=== PATIENT | male | born 1950 | race Caucasian/White ===

== ENCOUNTER → 2016-04-19 | Outpatient (CLI) | payer OTHER ==
[~2016-04-19] MED LIST: NEXIUM40 MG PO; TRAVATAN Z5 ML BOTH EYES
[2016-04-19 08:47] LABS: INTER. NORMALIZED RATIO 1.2; PROTHROMBIN TIME 12.6 (9.2-11.2); PTT 28.2 (25-32)
== END | disposition home or self-care (01) ==
LOC: OPR 04-17 10:00 → EDSTATUS 08:00
PROVIDERS: Internal Medicine
PROC: 0FB03ZX Excision of Liver, Percutaneous Approach, Diagnostic (ICD-10-PCS; principal; 2016-04-19)
DX: C22.7 Other specified carcinomas of liver (principal); R16.0 Hepatomegaly, not elsewhere classified; K21.9 Gastro-esophageal reflux disease without esophagitis; E78.5 Hyperlipidemia, unspecified; I10 Essential (primary) hypertension
CPT/HCPCS: 77012; 85610; 85730; 88307; 88341 TC; 88342 TC; J3010

== ENCOUNTER 2016-05-09 16:48 | Inpatient (IN) | payer OTHER ==
[~2016-05-09] VITALS: Ht 167.6 cm; Wt 71.0 kg
[~2016-05-09 16:48] MED LIST changes: +LORAZEPAM0.5 MG PO; +MIRALAX17 GM PO; +MORPHINE SULFAT15 MG PO; +ZOFRAN ODT4 MG PO
[2016-05-09 17:33] LABS: CHLORIDE 93 mEq/L (99-109); EOSINOPHIL (%) 1.4 % (0-5); HEMATOCRIT 39.3 % (38.0-50.0); LYMPHOCYTE COUNT 0.6 K/uL (1.0-2.8); MCHC 35.4 G/DL (30.0-36.0); MCV 87.7 FL (86-99); MONOCYTE (%) 4.3 % (3-12); NEUTROPHIL (%) 2.9 % (45-76); POTASSIUM 3.4 mEq/L (3.7-5.4); RBC DIS.WIDTH-CV 17.6 % (11.8-14.6); RED BLOOD COUNT 4.48 M/uL (4.00-5.50); SODIUM 132 mEq/L (136-147)
[2016-05-09 17:35] LABS: GLUCOSE 122 mg/dL (70-99)
[2016-05-09 17:36] LABS: ANION GAP 13 MEQ/L (2-14)
[2016-05-09 17:37] LABS: TOTAL BILIRUBIN 9.6 mg/dL (0.0-1.0); WHITE BLOOD COUNT 0.7 K/uL (4.1-10.2)
[2016-05-09 17:39] LABS: ALKALINE PHOSPHATASE 233 IU/L (3-129); GFR ESTIMATE (CALCULATED) > 59 mL/min/
[2016-05-09 17:40] LABS: UREA NITROGEN (BUN) 17 mg/dL (9-23)
[2016-05-09 18:15] LABS: ADD MIUA? NO; BILIRUBIN SMALL; BLOOD NEGATIVE; COLOR AMBER ((YELLOW)); GLUCOSE (STRIP) 50; KETONES NEGATIVE; LEUKOCYTES NEGATIVE; NITRITE NEGATIVE; PROTEIN (STRIP) 30; SPECIFIC GRAVITY 1.018 (1.000-1.030); UCUL ADDED? NO
[2016-05-09 19:19] LABS: ABS NEUTROPHIL COUNT 0.03; ANISOCYTOSIS 1+; HYPOCHROMASIA 1+; MEAN PLAT.VOLUME 11.3 uM^3 (9.0-12.4); PLAT.SUFFICIENCY DECREASED; TARGET CELLS 2+; USER ID SS
[2016-05-09 19:20] LABS: PLATELET COUNT 35 K/uL (156-360)
[2016-05-09] MEDS ORDERED: NYSTATIN100000 UN1 PO (19:38)
[2016-05-10] VITALS (7 sets, daily range): BP systolic 100–124; BP diastolic 52–67
[2016-05-10 07:48] LABS: ANION GAP 9 MEQ/L (2-14); CHLORIDE 97 MEQ/L (99-109); GFR ESTIMATE (CALCULATED) > 59 mL/min/; GLUCOSE 116 mg/dL (70-99); POTASSIUM 3.4 MEQ/L (3.7-5.4); SAMPLE HEMOLYSIS CHECK 0; SAMPLE ICTERIC CHECK 2; SAMPLE LIPEMIA CHECK 0; SODIUM 134 MEQ/L (136-147); TOTAL BILIRUBIN 9.1 MG/DL (0.0-1.0); UREA NITROGEN (BUN) 16 mg/dL (9-23)
[2016-05-10 07:49] LABS: ALKALINE PHOSPHATASE 182 IU/L (3-129)
[2016-05-10 08:17] LABS: HEMATOCRIT 33.6 % (38.0-50.0); MCH 31.6 PG (29.0-34.0); MCHC 35.1 G/DL (30.0-36.0); MCV 89.8 FL (86-99); RBC DIS.WIDTH-CV 16.8 % (11.8-14.6); RBC DIS.WIDTH-SD 55.8 % (39-53); RED BLOOD COUNT 3.74 M/uL (4.00-5.50)
[2016-05-10 08:18] LABS: MEAN PLAT.VOLUME 11.3 uM^3 (9.0-12.4)
[2016-05-10 08:19] LABS: WHITE BLOOD COUNT 0.9 K/uL (4.1-10.2)
[2016-05-10 08:20] LABS: PLATELET COUNT 25 K/uL (156-360)
[2016-05-10 08:54] LABS: HEMATOLOGY COMMENT 1 CL
[2016-05-11] VITALS (7 sets, daily range): BP systolic 116–156; BP diastolic 59–92
[2016-05-12] VITALS (11 sets, daily range): BP systolic 106–139; BP diastolic 53–87
[2016-05-12 09:51] LABS: HEMATOCRIT 33.7 % (38.0-50.0); MCH 30.9 PG (29.0-34.0); MCHC 34.1 G/DL (30.0-36.0); MCV 90.6 FL (86-99); RBC DIS.WIDTH-CV 15.8 % (11.8-14.6); RBC DIS.WIDTH-SD 52.1 % (39-53); RED BLOOD COUNT 3.72 M/uL (4.00-5.50)
[2016-05-12 09:53] LABS: EOSINOPHIL (%) 0 % (0-5); LYMPHOCYTE COUNT 0.9 K/uL (1.0-2.8); MONOCYTE (%) 1.1 % (3-12); NEUTROPHIL (%) 0 % (45-76); PLAT.SUFFICIENCY DECREASED
[2016-05-12 09:55] LABS: PLATELET COUNT 6 K/uL (156-360); WHITE BLOOD COUNT 0.9 K/uL (4.1-10.2)
[2016-05-12 09:57] LABS: HEMATOLOGY COMMENT 1 SMEAR COMPATIBLE
[2016-05-12 10:52] LABS: ALKALINE PHOSPHATASE 166 IU/L (3-129); ANION GAP 11 MEQ/L (2-14); CHLORIDE 97 MEQ/L (99-109); GFR ESTIMATE (CALCULATED) > 59 mL/min/; GLUCOSE 128 mg/dL (70-99); POTASSIUM 3.1 MEQ/L (3.7-5.4); SAMPLE HEMOLYSIS CHECK 0; SAMPLE ICTERIC CHECK 2; SAMPLE LIPEMIA CHECK 0; SODIUM 136 MEQ/L (136-147); TOTAL BILIRUBIN 7.6 MG/DL (0.0-1.0); UREA NITROGEN (BUN) 16 mg/dL (9-23)
[2016-05-12 20:39] LABS: HEMATOCRIT 29.9 % (38.0-50.0); MCH 32.3 PG (29.0-34.0); MCHC 35.8 G/DL (30.0-36.0); MCV 90.3 FL (86-99); MEAN PLAT.VOLUME 10.1 uM^3 (9.0-12.4); PLATELET COUNT 56 K/uL (156-360); RBC DIS.WIDTH-CV 15.3 % (11.8-14.6); RBC DIS.WIDTH-SD 50.7 % (39-53); RED BLOOD COUNT 3.31 M/uL (4.00-5.50)
[2016-05-13 02:59] VITALS: BP 114/60
[2016-05-13 07:03] LABS: HEMATOCRIT 30.5 % (38.0-50.0); MCH 30.6 PG (29.0-34.0); MCHC 33.8 G/DL (30.0-36.0); MCV 91.2 FL (86-99); RBC DIS.WIDTH-CV 15.1 % (11.8-14.6); RBC DIS.WIDTH-SD 50.1 % (39-53); RED BLOOD COUNT 3.37 M/uL (4.00-5.50)
[2016-05-13 07:10] LABS: WHITE BLOOD COUNT 1.1 K/uL (4.1-10.2)
[2016-05-13 07:20] VITALS: BP 113/67
[2016-05-13 08:04] LABS: EOSINOPHIL (%) 0.9 % (0-5); HEMATOLOGY COMMENT 1 SMEAR COMPATIBLE; LYMPHOCYTE COUNT 1.1 K/uL (1.0-2.8); MEAN PLAT.VOLUME 10.4 uM^3 (9.0-12.4); MONOCYTE (%) 2.7 % (3-12); NEUTROPHIL (%) 0 % (45-76); PLAT.SUFFICIENCY DECREASED; PLATELET COUNT 44 K/uL (156-360)
[2016-05-13 10:55] VITALS: BP 119/63
[2016-05-13] MEDS ORDERED: LEVAQUIN750 MG PO (12:12)
== END 2016-05-13 14:00 | disposition home or self-care (01) | DRG 809 ==
LOC: EME 16:48 → EDOF 19:58 → 5EAST 19:58
PROVIDERS: Emergency Medicine; Internal Medicine; Internal Medicine Hematology & Oncology
PROC: 30233R1 Transfusion of Nonautologous Platelets into Peripheral Vein, Percutaneous Approach (ICD-10-PCS; principal; 2016-05-12)
DX: D70.1 Agranulocytosis secondary to cancer chemotherapy (principal); R50.81 Fever presenting with conditions classified elsewhere; C34.90 Malignant neoplasm of unspecified part of unspecified bronchus or lung; C78.7 Secondary malignant neoplasm of liver and intrahepatic bile duct; R78.81 Bacteremia; B96.20 Unspecified Escherichia coli [E. coli] as the cause of diseases classified elsewhere; B96.5 Pseudomonas (aeruginosa) (mallei) (pseudomallei) as the cause of diseases classified elsewhere; D69.59 Other secondary thrombocytopenia; I10 Essential (primary) hypertension; K21.9 Gastro-esophageal reflux disease without esophagitis; F41.9 Anxiety disorder, unspecified; E78.5 Hyperlipidemia, unspecified; N40.0 Benign prostatic hyperplasia without lower urinary tract symptoms; Z87.891 Personal history of nicotine dependence
CPT/HCPCS: 36415; 71020; 80053; 81003; 83605; 85009; 85025; 85027; 86850; 86900; 86901; 87040; 87077; 87186; 87801; 93005; 99281; 99285; J0692; J0696; J2405; J3480; J7030; J7050; P9035

== ENCOUNTER 2016-05-27 12:34 | Emergency (ER) | payer OTHER ==
[~2016-05-27] VITALS: Ht 172.7 cm; Wt 71.2 kg
[~2016-05-27 12:34] MED LIST changes: +LEVAQUIN750 MG PO; +NYSTATIN100000 UN1 PO
[2016-05-27 13:25] LABS: BASOPHIL COUNT 0.1 K/uL (0-0.1); EOSINOPHIL (%) 0 % (0-5); HEMATOCRIT 36.7 % (38.0-50.0); IMMATURE GRANULOCYTE (%) 4.7 % (0.0-0.7); IMMATURE GRANULOCYTE COUNT 0.5 K/uL; INSTRUMENT ABS NEUTROPHIL CT 5.9 K/uL; LYMPHOCYTE COUNT 2.2 K/uL (1.0-2.8); MCH 31.1 PG (29.0-34.0); MCHC 34.3 G/DL (30.0-36.0); MCV 90.6 FL (86-99); MEAN PLAT.VOLUME 9.4 uM^3 (9.0-12.4); MONOCYTE (%) 13.8 % (3-12); MONOCYTE COUNT 1.4 K/uL (0-0.8); NEUTROPHIL (%) 59.2 % (45-76); NEUTROPHIL COUNT 5.9 K/uL (1.8-6.4); NRBC (%) 0.2 /100 WBC (0-0); PLATELET COUNT 631 K/uL (156-360); RBC DIS.WIDTH-SD 45.1 % (39-53); RED BLOOD COUNT 4.05 M/uL (4.00-5.50); WHITE BLOOD COUNT 9.9 K/uL (4.1-10.2)
[2016-05-27 13:33] LABS: CHLORIDE 96 mEq/L (99-109); POTASSIUM 3.5 mEq/L (3.7-5.4); SODIUM 134 mEq/L (136-147)
[2016-05-27 13:35] LABS: GLUCOSE 140 mg/dL (70-99)
[2016-05-27 13:36] LABS: ANION GAP 14 MEQ/L (2-14)
[2016-05-27 13:39] LABS: GFR ESTIMATE (CALCULATED) > 59 mL/min/
[2016-05-27 13:40] LABS: UREA NITROGEN (BUN) 10 mg/dL (9-23)
[2016-05-27 15:53] VITALS: BP 142/75
[2016-05-27] MEDS ORDERED: ANTIVERT25 MG PO (15:56)
[2016-05-28] MEDS ORDERED: LEVAQUIN750 MG PO (18:38)
[2016-05-28] MEDS ORDERED: K-DUR10 MEQ PO (18:39)
[2016-05-28] MEDS ORDERED: LEVAQUIN250 MG PO (18:39)
== END 2016-05-27 16:53 | disposition home or self-care (01) ==
LOC: EME 12:34
PROVIDERS: Emergency Medicine
DX: R42 Dizziness and giddiness (principal); R11.2 Nausea with vomiting, unspecified; R19.7 Diarrhea, unspecified; C34.90 Malignant neoplasm of unspecified part of unspecified bronchus or lung; C78.7 Secondary malignant neoplasm of liver and intrahepatic bile duct; Z87.891 Personal history of nicotine dependence
CPT/HCPCS: 80048; 85025; 93005; 99281; 99285; J2405; J7030

== ENCOUNTER 2016-05-28 15:12 | Observation (INO) | payer OTHER ==
[~2016-05-28] VITALS: Ht 172.7 cm; Wt 70.5 kg
[~2016-05-28 15:12] MED LIST changes: +ANTIVERT25 MG PO
[2016-05-28 16:42] LABS: EOSINOPHIL (%) 0 % (0-5); IMMATURE GRANULOCYTE (%) 3.1 % (0.0-0.7); IMMATURE GRANULOCYTE COUNT 0.4 K/uL; INSTRUMENT ABS NEUTROPHIL CT 6.4 K/uL; LYMPHOCYTE COUNT 3.8 K/uL (1.0-2.8); MCH 31.1 PG (29.0-34.0); MCHC 34.1 G/DL (30.0-36.0); MCV 91.4 FL (86-99); MEAN PLAT.VOLUME 9.2 uM^3 (9.0-12.4); MONOCYTE (%) 14.4 % (3-12); MONOCYTE COUNT 1.8 K/uL (0-0.8); NEUTROPHIL (%) 51.9 % (45-76); NEUTROPHIL COUNT 6.4 K/uL (1.8-6.4); NRBC (%) 0.2 /100 WBC (0-0); PLATELET COUNT 668 K/uL (156-360); RBC DIS.WIDTH-CV 14.2 % (11.8-14.6); RBC DIS.WIDTH-SD 46.2 % (39-53); RED BLOOD COUNT 4.05 M/uL (4.00-5.50); WHITE BLOOD COUNT 12.4 K/uL (4.1-10.2)
[2016-05-28 16:57] LABS: CHLORIDE 96 mEq/L (99-109); POTASSIUM 3.4 mEq/L (3.7-5.4); SODIUM 134 mEq/L (136-147)
[2016-05-28 17:00] LABS: GLUCOSE 103 mg/dL (70-99)
[2016-05-28 17:01] LABS: ANION GAP 11 MEQ/L (2-14)
[2016-05-28 17:02] LABS: TOTAL BILIRUBIN 2.1 mg/dL (0.0-1.0)
[2016-05-28 17:03] LABS: ALKALINE PHOSPHATASE 153 IU/L (3-129); GFR ESTIMATE (CALCULATED) > 59 mL/min/
[2016-05-28 17:04] LABS: UREA NITROGEN (BUN) 10 mg/dL (9-23)
[2016-05-28] MEDS ORDERED: LEVAQUIN750 MG PO (18:38)
[2016-05-28] MEDS ORDERED: K-DUR10 MEQ PO (18:39)
[2016-05-28] MEDS ORDERED: LEVAQUIN250 MG PO (18:39)
[2016-05-28 23:14] VITALS: BP 161/72
[2016-05-29 00:39] VITALS: BP 124/67
[2016-05-29 03:00] VITALS: BP 143/71
[2016-05-29 04:40] LABS: ADD MIUA? NO; BILIRUBIN NEGATIVE; BLOOD NEGATIVE; COLOR YELLOW ((YELLOW)); GLUCOSE (STRIP) NEGATIVE; KETONES 5; LEUKOCYTES NEGATIVE; NITRITE NEGATIVE; PROTEIN (STRIP) NEGATIVE; SPECIFIC GRAVITY 1.008 (1.000-1.030); UCUL ADDED? NO
[2016-05-29 08:05] VITALS: BP 118/68
[2016-05-29 08:53] LABS: HEMATOCRIT 34.3 % (38.0-50.0); MCH 31.5 PG (29.0-34.0); MCHC 34.1 G/DL (30.0-36.0); MCV 92.2 FL (86-99); MEAN PLAT.VOLUME 10.5 uM^3 (9.0-12.4); PLATELET COUNT 592 K/uL (156-360); RBC DIS.WIDTH-CV 14.4 % (11.8-14.6); RBC DIS.WIDTH-SD 46.8 % (39-53); RED BLOOD COUNT 3.72 M/uL (4.00-5.50); WHITE BLOOD COUNT 12.6 K/uL (4.1-10.2)
[2016-05-29 09:11] LABS: ANION GAP 8 MEQ/L (2-14); CHLORIDE 99 MEQ/L (99-109); GFR ESTIMATE (CALCULATED) > 59 mL/min/; GLUCOSE 86 mg/dL (70-99); POTASSIUM 3.6 MEQ/L (3.7-5.4); SAMPLE HEMOLYSIS CHECK 1; SAMPLE ICTERIC CHECK 0; SAMPLE LIPEMIA CHECK 0; SODIUM 133 MEQ/L (136-147); UREA NITROGEN (BUN) 8 mg/dL (9-23)
[2016-05-29 12:38] VITALS: BP 129/73
[2016-05-29] MEDS ORDERED: REGLAN10 MG PO (14:25)
== END 2016-05-29 15:35 | disposition home or self-care (01) ==
LOC: EME 15:12 → EDOF 21:00 → 5WEST 22:52
PROVIDERS: Emergency Medicine; Hospitalist
DX: R11.2 Nausea with vomiting, unspecified (principal); R62.7 Adult failure to thrive; E86.0 Dehydration; C34.90 Malignant neoplasm of unspecified part of unspecified bronchus or lung; D72.829 Elevated white blood cell count, unspecified; E46 Unspecified protein-calorie malnutrition; R42 Dizziness and giddiness; I10 Essential (primary) hypertension; E78.5 Hyperlipidemia, unspecified; Z87.81 Personal history of (healed) traumatic fracture
CPT/HCPCS: 80048; 80053; 81003; 85025 91; 85027; 99281; 99285; G0378; J2765; J3480; J7030; J7050

== ENCOUNTER 2016-06-11 17:49 | Emergency (ER) | payer OTHER ==
[~2016-06-11] VITALS: Ht 175.3 cm; Wt 73.7 kg
[~2016-06-11 17:49] MED LIST changes: +K-DUR10 MEQ PO; +LEVAQUIN250 MG PO; +REGLAN10 MG PO
[2016-06-11 19:47] LABS: HEMATOCRIT 33.8 % (38.0-50.0); MCH 31.3 PG (29.0-34.0); MCV 91.8 FL (86-99); RBC DIS.WIDTH-CV 13.5 % (11.8-14.6); RBC DIS.WIDTH-SD 45.1 % (39-53); RED BLOOD COUNT 3.68 M/uL (4.00-5.50)
[2016-06-11 19:48] LABS: WHITE BLOOD COUNT 16.3 K/uL (4.1-10.2)
[2016-06-11 19:56] LABS: CHLORIDE 100 mEq/L (99-109); POTASSIUM 3.6 mEq/L (3.7-5.4); SODIUM 137 mEq/L (136-147)
[2016-06-11 19:57] LABS: GLUCOSE 81 mg/dL (70-99)
[2016-06-11 19:59] LABS: ANION GAP 17 MEQ/L (2-14)
[2016-06-11 20:01] LABS: GFR ESTIMATE (CALCULATED) > 59 mL/min/
[2016-06-11 20:02] LABS: UREA NITROGEN (BUN) 16 mg/dL (9-23)
[2016-06-11 20:33] LABS: HEMATOLOGY COMMENT 1 SN; MEAN PLAT.VOLUME 10.8 uM^3 (9.0-12.4)
[2016-06-11 20:34] LABS: PLATELET COUNT 279 K/uL (156-360)
[2016-06-11 21:14] LABS: C DIFF TOXIN NEGATIVE (NEGATIVE)
[2016-06-11 21:15] LABS: PROBE CHECK PASS; SPECIMEN PROCESSING CONTROL PASS
[2016-06-11 22:19] VITALS: BP 120/91
== END 2016-06-11 22:20 | disposition home or self-care (01) ==
LOC: EME 17:49
PROVIDERS: Emergency Medicine
DX: E86.0 Dehydration (principal); R11.2 Nausea with vomiting, unspecified; R19.7 Diarrhea, unspecified; R55 Syncope and collapse; C22.8 Malignant neoplasm of liver, primary, unspecified as to type; C78.00 Secondary malignant neoplasm of unspecified lung; Z87.891 Personal history of nicotine dependence
CPT/HCPCS: 80048; 85027; 87493; 99281; 99285; J2405; J7030

== ENCOUNTER 2016-09-19 12:45 | Observation (INO) | payer OTHER ==
[~2016-09-19] VITALS: Ht 170.2 cm; Wt 66.5 kg
[~2016-09-19 12:45] MED LIST changes: +VIRTUSSIN AC L473 ML PO
[2016-09-19 15:06] LABS: HEMATOCRIT 35.6 % (38.0-50.0); MCH 31.5 PG (29.0-34.0); MCHC 33.1 G/DL (30.0-36.0); MCV 94.9 FL (86-99); MEAN PLAT.VOLUME 9.1 uM^3 (9.0-12.4); PLATELET COUNT 135 K/uL (156-360); RBC DIS.WIDTH-CV 16.4 % (11.8-14.6); RBC DIS.WIDTH-SD 58.1 % (39-53); RED BLOOD COUNT 3.75 M/uL (4.00-5.50); WHITE BLOOD COUNT 7.8 K/uL (4.1-10.2)
[2016-09-19 15:13] LABS: CHLORIDE 102 mEq/L (99-109); POTASSIUM 4.1 mEq/L (3.7-5.4); SODIUM 138 mEq/L (136-147)
[2016-09-19 15:15] LABS: GLUCOSE 110 mg/dL (70-99)
[2016-09-19 15:17] LABS: ANION GAP 10 MEQ/L (2-14); TOTAL BILIRUBIN 0.6 mg/dL (0.0-1.0)
[2016-09-19 15:19] LABS: ALKALINE PHOSPHATASE 95 IU/L (3-129); GFR ESTIMATE (CALCULATED) > 59 mL/min/
[2016-09-19 15:20] LABS: UREA NITROGEN (BUN) 11 mg/dL (9-23)
[2016-09-19 15:26] LABS: TROP-I INTERPRETATION NEGATIVE; TROPONIN-I < 0.01 ng/mL (0.0-0.30)
[2016-09-19] MEDS ORDERED: METOCLOPRAMIDE10 MG PO (18:32)
[2016-09-19 22:31] VITALS: BP 136/83
[2016-09-19 22:31] LABS: TROP-I INTERPRETATION NEGATIVE; TROPONIN-I < 0.01 ng/mL (0.0-0.30)
[2016-09-20 04:33] VITALS: BP 121/85
[2016-09-20 05:47] LABS: HEMATOCRIT 33.9 % (38.0-50.0); MCH 31.7 PG (29.0-34.0); MCHC 33.3 G/DL (30.0-36.0); MEAN PLAT.VOLUME 9.1 uM^3 (9.0-12.4); PLATELET COUNT 126 K/uL (156-360); RBC DIS.WIDTH-CV 16.3 % (11.8-14.6); RBC DIS.WIDTH-SD 57.9 % (39-53); RED BLOOD COUNT 3.57 M/uL (4.00-5.50); WHITE BLOOD COUNT 6.4 K/uL (4.1-10.2)
[2016-09-20 06:08] LABS: ANION GAP 10 MEQ/L (2-14); CHLORIDE 100 MEQ/L (99-109); GFR ESTIMATE (CALCULATED) > 59 mL/min/; GLUCOSE 88 mg/dL (70-99); POTASSIUM 3.9 MEQ/L (3.7-5.4); SAMPLE HEMOLYSIS CHECK 0; SAMPLE ICTERIC CHECK 0; SAMPLE LIPEMIA CHECK 0; SODIUM 140 MEQ/L (136-147); UREA NITROGEN (BUN) 11 mg/dL (9-23)
[2016-09-20 08:00] VITALS: BP 139/88
[2016-09-20 11:11] VITALS: BP 133/92
== END 2016-09-20 12:10 | disposition home or self-care (01) ==
LOC: EME 12:45 → EDOF 20:01 → 5WEST 20:01
PROVIDERS: Emergency Medicine; Hospitalist
DX: R00.0 Tachycardia, unspecified (principal); C34.90 Malignant neoplasm of unspecified part of unspecified bronchus or lung; C78.7 Secondary malignant neoplasm of liver and intrahepatic bile duct; I10 Essential (primary) hypertension; E11.9 Type 2 diabetes mellitus without complications; Z87.891 Personal history of nicotine dependence; E78.5 Hyperlipidemia, unspecified
CPT/HCPCS: 80048; 80053; 84443; 84484; 85027; 93005; 99281; 99285; G0378; J1644

== ENCOUNTER 2016-10-06 14:00 | Emergency (ER) | payer OTHER ==
[~2016-10-06] VITALS: Ht 170.2 cm; Wt 65.1 kg
[~2016-10-06 14:00] MED LIST changes: +METOCLOPRAMIDE10 MG PO
[2016-10-06 15:11] LABS: HEMATOCRIT 34.4 % (38.0-50.0); MCH 31.5 PG (29.0-34.0); MCHC 33.7 G/DL (30.0-36.0); MCV 93.5 FL (86-99); MEAN PLAT.VOLUME 9.2 uM^3 (9.0-12.4); PLATELET COUNT 121 K/uL (156-360); RBC DIS.WIDTH-CV 14.9 % (11.8-14.6); RBC DIS.WIDTH-SD 51.8 % (39-53); RED BLOOD COUNT 3.68 M/uL (4.00-5.50); WHITE BLOOD COUNT 7.1 K/uL (4.1-10.2)
[2016-10-06 15:19] LABS: CHLORIDE 96 mEq/L (99-109); SODIUM 134 mEq/L (136-147)
[2016-10-06 15:21] LABS: GLUCOSE 104 mg/dL (70-99)
[2016-10-06 15:22] LABS: ANION GAP 15 MEQ/L (2-14)
[2016-10-06 15:23] LABS: TOTAL BILIRUBIN 1.2 mg/dL (0.0-1.0)
[2016-10-06 15:24] LABS: ALKALINE PHOSPHATASE 170 IU/L (3-129)
[2016-10-06 15:25] LABS: GFR ESTIMATE (CALCULATED) > 59 mL/min/
[2016-10-06 15:26] LABS: UREA NITROGEN (BUN) 14 mg/dL (9-23)
[2016-10-06] MEDS ORDERED: DILAUDID2 MG PO (16:34)
[2016-10-06 16:52] VITALS: BP 130/90
== END 2016-10-06 16:45 | disposition home or self-care (01) ==
LOC: EME 14:00
PROVIDERS: Physician Assistant Medical
DX: G89.3 Neoplasm related pain (acute) (chronic) (principal); C34.90 Malignant neoplasm of unspecified part of unspecified bronchus or lung; C78.7 Secondary malignant neoplasm of liver and intrahepatic bile duct; Z87.891 Personal history of nicotine dependence
CPT/HCPCS: 80053; 81003; 85027; 99281; 99284; J1170

== ENCOUNTER 2016-10-07 11:48 | Emergency (ER) | payer OTHER ==
[~2016-10-07] VITALS: Ht 170.2 cm; Wt 65.1 kg
[~2016-10-07 11:48] MED LIST changes: +DILAUDID2 MG PO
[2016-10-07 12:39] LABS: HEMATOCRIT 34.9 % (38.0-50.0); MCH 31.8 PG (29.0-34.0); MCHC 33.8 G/DL (30.0-36.0); MCV 94.1 FL (86-99); MEAN PLAT.VOLUME 9.7 uM^3 (9.0-12.4); PLATELET COUNT 163 K/uL (156-360); RBC DIS.WIDTH-CV 15.2 % (11.8-14.6); RBC DIS.WIDTH-SD 52.7 % (39-53); RED BLOOD COUNT 3.71 M/uL (4.00-5.50); WHITE BLOOD COUNT 10.2 K/uL (4.1-10.2)
[2016-10-07 12:51] LABS: CHLORIDE 93 mEq/L (99-109); POTASSIUM 3.4 mEq/L (3.7-5.4); SODIUM 131 mEq/L (136-147)
[2016-10-07 12:53] LABS: GLUCOSE 153 mg/dL (70-99)
[2016-10-07 12:54] LABS: ANION GAP 16 MEQ/L (2-14)
[2016-10-07 12:56] LABS: ALKALINE PHOSPHATASE 179 IU/L (3-129)
[2016-10-07 12:57] LABS: GFR ESTIMATE (CALCULATED) > 59 mL/min/
[2016-10-07 12:58] LABS: UREA NITROGEN (BUN) 16 mg/dL (9-23)
[2016-10-07 13:00] LABS: LIPASE 17 U/L (1.0-51.0)
[2016-10-07 13:42] LABS: TROP-I INTERPRETATION NEGATIVE; TROPONIN-I < 0.01 ng/mL (0.0-0.30)
[2016-10-07 14:14] LABS: ADD MIUA? YES; BILIRUBIN NEGATIVE; BLOOD NEGATIVE; COLOR YELLOW ((YELLOW)); GLUCOSE (STRIP) NEGATIVE; KETONES 20; LEUKOCYTES NEGATIVE; NITRITE NEGATIVE; PROTEIN (STRIP) 100; SPECIFIC GRAVITY 1.012 (1.000-1.030); UROBILINOGEN 0.2 MG/DL (0.2-1.0)
[2016-10-07 14:22] LABS: BACTERIA RARE /HPF; EPITHELIAL CELLS RARE /HPF; MUCUS TRACE /LPF; RED BLOOD CELLS 0-5 /HPF (0-5); UCUL ADDED? NO; WHITE BLOOD CELLS NONE SEEN /HPF (0-5)
[2016-10-07 17:18] VITALS: BP 132/94
== END 2016-10-07 17:19 | disposition home or self-care (01) ==
LOC: EME 11:48
PROVIDERS: Emergency Medicine
DX: R10.31 Right lower quadrant pain (principal); R10.32 Left lower quadrant pain; C34.90 Malignant neoplasm of unspecified part of unspecified bronchus or lung; C78.7 Secondary malignant neoplasm of liver and intrahepatic bile duct; K21.9 Gastro-esophageal reflux disease without esophagitis; I10 Essential (primary) hypertension; F32.9 Major depressive disorder, single episode, unspecified; E11.9 Type 2 diabetes mellitus without complications; Z87.891 Personal history of nicotine dependence
CPT/HCPCS: 71010; 74177; 80053; 81003; 83605; 83690; 84484; 85027; 99281; 99285; J1170; J7030; J7050